=== PATIENT | female | born 1945 | race Caucasian/White ===

== ENCOUNTER 2019-04-17 12:33 | Emergency (ER) | payer OTHER, BC ==
[2019-04-17] MEDS ORDERED: LIDOCAINE 1% W/EPI 1:100,000 MDV 50 ML VIAL ONE (13:24)
--- NOTE | 2019-04-17 14:00 | RAD REPORT ---
EXAM DESCRIPTION: CT - Head Brain Wo Cont - 04/17/2019 1:45 pm CLINICAL HISTORY: Headache, dizziness, blunt force trauma to the head COMPARISON: None. TECHNIQUE: Axial 5 mm thick images of the head were obtained without IV contrast. All CT scans are performed using dose optimization technique as appropriate and may include automated exposure control or mA/KV adjustment according to patient size. FINDINGS: No intracranial hemorrhage, mass, edema or shift of mid-line structures. No acute infarcti on changes seen. No abnormal extra-axial fluid collections. Patient has underlying mild for age atrop hy. Ventricles are in proportion to the volume loss. Chronic ischemic changes minimal. Arterial calci fications are present. Mastoid air cells and visualized portions of the paranasal sinuses are clear. No acute bony findings. Midline frontal scalp laceration has been repaired. No foreign body. IMPRESSION: No hemorrhage, edema or acute intracranial finding.
--- NOTE | 2019-04-17 14:23 | ER ---
Nurse's Notes [facility] Name: Virginia Hopper Age: 74 yrs Sex: Female : 1945 Arrival Date: 04/17/2019 Time: 12:34 Bed 2 Private MD: Oliver Burns Diagnosis: Laceration without foreign body of scalp Presentation: 04/17 12:56 Presenting complaint: Patient states: I was walking under my fifth wheel travel trailer sg when I hit the top of my head on the goosneck hitch of the trailer, got dizzy but no LOC, reports pain to scalp that is an 8/10, throbbing. Transition of care: patient was not received from another setting of care. Complicating Factors: There are no complicating factors for this patient. Onset of symptoms was April 17, 2019. Risk Assessment: Do you want to hurt yourself or someone else? Patient reports no desire to harm self or others. Initial Sepsis Screen: Does the patient meet any 2 criteria? No. Patient's initial sepsis screen is negative. Does the patient have a suspected source of infection? No. Patient's initial sepsis screen is negative. Care prior to arrival:. Care prior to arrival: None. 12:56 Method Of Arrival: Ambulatory sg 12:56 Acuity: KD 4 sg Triage Assessment: 13:00 Injury Description: Laceration sustained to top of head is contaminated, 2.6 to 7.5 cm sg long, not bleeding, was sustained 30-60 minutes ago. is bleeding moderately. Historical: - Allergies: 12:59 No Known Allergies; sg - Home Meds: 12:59 Metoprolol Tartrate Oral [Active]; sg - PMHx: 12:59 Atrial Fib; Hypertension; sg - PSHx: 12:59 Tubal ligation; sg - Immunization history:: Adult Immunizations up to date. - Social history:: Smoking status: Patient/guardian denies using tobacco, Patient/guardian denies using alcohol, street drugs, The patient lives with family, with spouse. - Ebola Screening: : Patient negative for fever greater than or equal to 101.5 degrees Fahrenheit, and additional compatible Ebola Virus Disease symptoms Patient denies exposure to infectious person Patient denies travel to an Ebola-affected area in the 21 days before illness onset No symptoms or risks identified at this time. - Family history:: not pertinent. Screenin:17 Abuse screen: Denies threats or abuse. Denies injuries from another. Nutritional sg screening: No deficits noted. Tuberculosis screening: No symptoms or risk factors identified. Fall Risk None identified. Assessment: 13:00 General: Appears in no apparent distress. well groomed, well developed, well nourished, sg Behavior is calm, cooperative, appropriate for age. Pain: Complains of pain in top of head Quality of pain is described as tender. Neuro: Level of Consciousness is awake, alert, obeys commands, Oriented to person, place, time, Business Database Analyst are equal bilaterally Moves all extremities. Gait is steady, Speech is normal, Facial symmetry appears normal, Pupils are PERRLA, Reports dizziness. Cardiovascular: Capillary refill is brisk in bilateral fingers Patient's skin is warm and dry. Chest pain is denied. Respiratory: Airway is patent Respiratory effort is even, unlabored, Respiratory pattern is regular, symmetrical. GI: Abdomen is flat, non-distended, Reports tolerance of fluids, tolerance of food. : No signs and/or symptoms were reported regarding the genitourinary system. EENT: No signs and/or symptoms were reported regarding the EENT system. Derm: Skin is pink, warm \T\ dry. Musculoskeletal: Circulation, motion, and sensation intact. Range of motion: intact in all extremities. Injury Description: Laceration sustained to top of head is contaminated, 2.6 to 7.5 cm long, not bleeding, was sustained 30-60 minutes ago. is bleeding moderately. 14:00 Reassessment: Patient appears in no apparent distress at this time. Patient and/or sg family updated on plan of care and expected duration. Pain level reassessed. Patient is alert, oriented x 3, equal unlabored respirations, skin warm/dry/pink. Vital Signs: 12:58 BP 147 / 76; Pulse 71; Resp 17 S; Temp 97.2; Pulse Ox 99% on R/A; Pain 0/10; sg 13:36 BP 130 / 64; Pulse 69; Resp 17; Pulse Ox 99% on R/A; sg ED Course: 12:34 Patient arrived in ED. as 12:35 Oliver Burns MD is Private Physician. as 12:47 Frank Huynh MD is Attending Physician. ma2 12:55 Clint Coleman, RN is Primary Nurse. sg 12:57 Triage completed. sg 12:57 Arm band placed on. sg 13:15 Assist provider with laceration repair on top of head using leslie. Set up tray. sg Performed by Frank Huynh MD. 13:[address] Scan. sg 13:46 CT Head Brain wo Cont In Process Unspecified. EDMS 13:47 Patient moved back from CT. sg Administered Medications: No medications were administered Outcome: 14:22 Discharge ordered by . willie 14:34 Patient left the ED. bd Signatures: Dispatcher [employer] EDMS Vani Talley Steven, RN RN Jessica Potter as Frank Huynh MD MD paIvis
--- NOTE | 2019-04-17 14:23 | EDPHYS ---
Physician Documentation [facility] Name: Virginia Hopper Age: 74 yrs Sex: Female : 1945 Arrival Date: 04/17/2019 Time: 12:34 Bed 2 Private MD: Oliver Burns ED Physician Frank Huynh HPI: 04/17 14:18 This 74 yrs old Female presents to ER via Ambulatory with complaints of ma2 Laceration To Head, Dizziness. 14:18 The patient has a laceration related to: was walking and hit a metallic edge sustained ma2 scalp laceration. Onset: The symptoms/episode began/occurred suddenly, 1 hour(s) ago. Associated signs and symptoms: Pertinent negatives: heavy bleeding, numbness distal to injury. The patient has not experienced similar symptoms in the past. Historical: - Allergies: 12:59 No Known Allergies; sg - Home Meds: 12:59 Metoprolol Tartrate Oral [Active]; sg - PMHx: 12:59 Atrial Fib; Hypertension; sg - PSHx: 12:59 Tubal ligation; sg - Immunization history:: Adult Immunizations up to date. - Social history:: Smoking status: Patient/guardian denies using tobacco, Patient/guardian denies using alcohol, street drugs, The patient lives with family, with spouse. - Ebola Screening: : Patient negative for fever greater than or equal to 101.5 degrees Fahrenheit, and additional compatible Ebola Virus Disease symptoms Patient denies exposure to infectious person Patient denies travel to an Ebola-affected area in the 21 days before illness onset No symptoms or risks identified at this time. - Family history:: not pertinent. ROS: 14:18 Constitutional: Negative for fever, chills, and weight loss, Cardiovascular: Negative ma2 for chest pain, palpitations, and edema, Respiratory: Negative for shortness of breath, cough, wheezing, and pleuritic chest pain, Abdomen/GI: Negative for abdominal pain, nausea, diarrhea, and constipation, MS/Extremity: Negative for injury and deformity, Psych: Negative for depression, anxiety, suicide ideation, homicidal ideation, and hallucinations. 14:18 Skin: Positive for scalp laceration, Negative for Exam: 14:18 Constitutional: This is a well developed, well nourished patient who is awake, alert, ma2 and in no acute distress. Chest/axilla: Normal chest wall appearance and motion. Nontender with no deformity. No lesions are appreciated. Cardiovascular: Regular rate and rhythm with a normal S1 and S2. No gallops, murmurs, or rubs. Normal PMI, no JVD. No pulse deficits. Respiratory: Lungs have equal breath sounds bilaterally, clear to auscultation and percussion. No rales, rhonchi or wheezes noted. No increased work of breathing, no retractions or nasal flaring. Back: No spinal tenderness. No costovertebral tenderness. Full range of motion. 14:18 Head/face: Exam is negative for moran signs, contusion, ecchymosis, Noted is laceration. Vital Signs: 12:58 BP 147 / 76; Pulse 71; Resp 17 S; Temp 97.2; Pulse Ox 99% on R/A; Pain 0/10; sg 13:36 BP 130 / 64; Pulse 69; Resp 17; Pulse Ox 99% on R/A; sg Laceration: 14:18 Wound Repair of 3cm ( 1.2in ) subcutaneous laceration to scalp and top of head. ma2 Skin/tissue flap noted.. Distal neuro/vascular/tendon intact. Anesthesia: Local anesthetic administered with 9 mls of 1% lidocaine w/ Epi. Wound prep: Simple cleansing, Moderate cleansing. Skin closed with 8 1-0 Daykin using simple sutures and sterile technique. Dressed with 4x4's. Patient tolerated well. MDM: 12:46 Patient medically screened. ma2 14:18 Differential diagnosis: superficial laceration. Data reviewed: vital signs, nurses ma2 notes. Counseling: I had a detailed discussion with the patient and/or guardian regarding: the historical points, exam findings, and any diagnostic results supporting the discharge/admit diagnosis, the presence of at least one elevated blood pressure reading (>120/80) during this emergency department visit. Response to treatment: There is no appreciated change of the patient's symptoms at this time. 04/17 13:34 Order name: CT Head Brain wo Cont; Complete Time: 14:18 ma2 Administered Medications: No medications were administered Disposition: 04/17/19 14:22 Discharged to Home. Impression: Laceration without foreign body of scalp. - Condition is Stable. - Discharge Instructions: Laceration Care, Adult. - Prescriptions for Tylenol- Codeine #3 300-30 mg Oral Tablet - take 2 tablet by ORAL route every 6 hours As needed; 30 tablet. - Medication Reconciliation Form, Thank You Letter, Antibiotic Education, Prescription Opioid Use form. - Follow up: Private Physician; When: Tomorrow; Reason: Continuance of care. - Notes: remove leslie in 7 days Signatures: Dispatcher [employer] EDMS Vani Talley Steven, RN RN sg Alzahri, Mohammad, MD MD ma2 Corrections: (The following items were deleted from the chart) 14:34 14:22 04/17/2019 14:22 Discharged to Home. Impression: Laceration without foreign body bd of scalp. Condition is Stable. Forms are Medication Reconciliation Form, Thank You Letter, Antibiotic Education, Prescription Opioid Use. Follow up: Private Physician; When: Tomorrow; Reason: Continuance of care. ma2
== END 2019-04-17 14:34 | disposition home or self-care (01) ==
LOC: ER 12:33
PROC: 0JQ00ZZ Repair Scalp Subcutaneous Tissue and Fascia, Open Approach (ICD-10-PCS; principal; 2019-04-17)
DX: S01.01XA Laceration without foreign body of scalp, initial encounter (principal); I10 Essential (primary) hypertension; I48.91 Unspecified atrial fibrillation
CPT/HCPCS: 70450; 99284